=== PATIENT | male | born 1990 | race Caucasian/White ===

== ENCOUNTER 2020-11-27 23:30 | Inpatient (IN) | payer BC ==
[~2020-11-27] VITALS: Ht 182.9 cm; Wt 111.4 kg
[2020-11-28] MEDS ORDERED: diltiazem 5mg/ml 5ml inj. IV ONE (00:25)
[2020-11-28] MEDS ORDERED: diltiazem 30mg tablet PO ONE (00:45)
[2020-11-28 00:59] LABS: ALANINE AMINOTRANSFERASE 63 U/L (12-78); ALBUMIN 3.9 G/DL (3.4-5.0); ALBUMIN/GLOBULIN RATIO 0.9 (1.1-1.5); ALKALINE PHOSPHATASE 74 IU/L (46-116); ANION GAP 9 (8-16); ASPARTATE AMINO TRANSFERASE 30 U/L (10-37); BILIRUBIN,TOTAL 0.4 MG/DL (0.1-1.0); BLOOD UREA NITROGEN 17 MG/DL (7-18); BUN/CREATININE RATIO 14.8 (5.4-32.0); CALCIUM 9.4 MG/DL (8.5-10.1); CHLORIDE 104 MMOL/L (99-107); CREATININE 1.15 MG/DL (0.60-1.10); GLUCOSE 135 MG/DL (70-104); POTASSIUM 3.5 MMOL/L (3.5-5.1); SODIUM 142 MMOL/L (135-145); TOTAL CARBON DIOXIDE 29.1 MMOL/L (24-32); TOTAL PROTEIN 8.4 G/DL (6.4-8.2); eGFR 74 ML/MIN
[2020-11-28 01:19] LABS: BASOPHILS # (AUTO) 0.1 X10'3 (0-0.2); BASOPHILS % (AUTO) 0.6 % (0-1); EOSINOPHILS # (AUTO) 0.1 X10'3 (0-0.9); HEMATOCRIT 47.7 % (42.0-52.0); HEMOGLOBIN 16.9 g/dl (14.0-17.9); LYMPHOCYTES # (AUTO) 3.6 X10'3 (1.1-4.8); MEAN CORPUSCULAR HEMOGLOBIN 29.2 PG (27.0-31.0); MEAN CORPUSCULAR HGB CONC 35.3 g/dL (33.0-36.5); MEAN CORPUSCULAR VOLUME 82.8 FL (78-98); MEAN PLATELET VOLUME 8.9 FL (7.4-10.4); MONOCYTES # (AUTO) 0.7 X10'3 (0-0.9); MONOCYTES % (AUTO) 8.9 % (2-12); NEUTROPHILS # (AUTO) 3.9 X10'3 (1.8-7.7); NEUTROPHILS % (AUTO) 46.5 % (42-75); PLATELET COUNT 264 X10'3 (140-440); RED BLOOD COUNT 5.77 X10'6 (4.70-6.10); RED CELL DISTRIBUTION WIDTH 12.9 % (11.5-14.5); WHITE BLOOD COUNT 8.3 X10'3 (4.5-11.0)
[2020-11-28 01:27] LABS: MAGNESIUM 2.5 MG/DL (1.5-2.4)
--- NOTE | 2020-11-28 02:10 | NUR ---
AT BEDSIDE - PTS HEARTRATE REMAINS VARIABLE FROM HIGH 90'S TO 130'S A-FIB
[2020-11-28] MEDS ORDERED: morphine 2 MG/ML inj. syringe IV PRN ×2 (02:30)
[2020-11-28] MEDS ORDERED: diphenhydrAMINE 50 mg/ml inj IV PRN (02:30)
[2020-11-28] MEDS ORDERED: acetaminophen 325mg tablet PO PRN ×2 (02:30)
[2020-11-28] MEDS ORDERED: diphenhydrAMINE 25mg capsule PO PRN (02:30)
[2020-11-28] MEDS ORDERED: HYDROcodone/acetaminophen 10/325mg tab PO PRN (02:30)
[2020-11-28] MEDS ORDERED: mag hydrox/Alum hydrox/simeth 30ml oral suspension PO PRN (02:30)
[2020-11-28] MEDS ORDERED: ondansetron 4mg rapidly disintigrating tab PO PRN (02:30)
[2020-11-28] MEDS ORDERED: bisacodyl 10mg suppository rectal RC PRN (02:30)
[2020-11-28] MEDS ORDERED: HYDROcodone/acetaminophen 5mg/325mg tablet PO PRN (02:30)
[2020-11-28] MEDS ORDERED: magnesium hydroxide 30ml (MOM) UD suspension PO PRN (02:30)
[2020-11-28] MEDS ORDERED: ondansetron/PF 4mg/2ml inj IV PRN (02:30)
[2020-11-28] MEDS ORDERED: acetaminophen 650mg rectal suppository RC PRN (02:30)
[2020-11-28] MEDS ORDERED: hydrALAZINE 20mg/ml inj. IV PRN (02:40)
[2020-11-28 03:06] LABS: HEMOGLOBIN A1C 5.6 % (4.5-6.2)
[2020-11-28 03:07] LABS: CREATINE KINASE 356 U/L (39-308); LIPASE 143 U/L (73-393); PHOSPHORUS 4.9 MG/DL (2.3-4.5); TROPONIN I < 0.04 NG/ML (0.0-0.05)
[2020-11-28 03:08] LABS: URINE AMPHETAMINE SCREEN NEGATIVE (Neg); URINE BARBITUATE SCREEN NEGATIVE (Neg); URINE BENZODIAZEPINES SCREEN NEGATIVE (Neg); URINE CANNABINOID SCREEN NEGATIVE (Neg); URINE COCAINE SCREEN NEGATIVE (Neg); URINE METHADONE SCREEN NEGATIVE (Neg); URINE OPIATE SCREEN NEGATIVE (Neg); URINE PHENCYCLIDINE SCREEN NEGATIVE (Neg)
[2020-11-28 03:17] LABS: CLARITY,URINE CLEAR (Clear); COLOR,URINE STRAW (Yellow); GLUCOSE, URINE NEGATIVE (Neg); KETONES,URINE NEGATIVE (Neg); LEUKOCYTE ESTERASE ,URINE NEGATIVE (Neg); NITRITES, URINE NEGATIVE (Neg); OCCULT BLOOD,URINE NEGATIVE (Neg); PH,URINE 6.5 (4.8-8.0); PROTEIN,URINE NEGATIVE (Neg); UA COLLECTION TYPE URINAL; UROBILINOGEN,URINE 0.2 E.U/dL (0.2-1.0)
[2020-11-28] MEDS: dextrose 5%-1/2 normal saline 1,000 ML IV SCH ×3 (04:10→22:30)
[2020-11-28] MEDS: diltiazem-NS 100mg/100ml 100 ML IV SCH ×2 (04:10→22:40)
--- NOTE | 2020-11-28 04:24 | NUR ---
pt resting on gurney - cardizem drip has been started. remains at bedside
--- NOTE | 2020-11-28 05:09 | NUR ---
verbal order from MD [place] to increase cardizem drip to 10mg/hr
--- NOTE | 2020-11-28 06:47 | NUR ---
Assisted pt to ambulate to the BR
[2020-11-28] MEDS: pantoprazole 40mg Tablet.DR PO SCH (07:21)
[2020-11-28] MEDS: metoprolol tartrate 25mg tablet PO SCH ×2 (07:21→19:15)
[2020-11-28] MEDS: LORazepam 1 MG tablet PO SCH ×2 (07:21→17:01)
[2020-11-28] MEDS: enoxaparin 30mg/0.3ml syringe SUBCUT SCH ×2 (07:22→19:38)
[2020-11-28] MEDS: enoxaparin 80mg/0.8ml syringe SUBCUT SCH ×2 (07:22→19:37)
[2020-11-28] MEDS: docusate sod 100mg capsule PO SCH ×2 (07:23→19:38)
[2020-11-28] MEDS ORDERED: magnesium 4gm in 100ml NS 100 ML IV PRN (10:25)
[2020-11-28] MEDS ORDERED: potassium Cl 20 mEq SR tablet PO PRN ×2 (10:25)
[2020-11-28] MEDS ORDERED: magnesium Cl slow-release 64mg tablet PO PRN (10:25)
[2020-11-28] MEDS ORDERED: potassium Cl 40MEQ/1/2NS 520ml 520 ML IV PRN (10:25)
[2020-11-28] MEDS ORDERED: iohexol 350MG/ML 100ml bottle IV ONE (11:28)
[2020-11-28] MEDS ORDERED: iohexol 300mg/ml 100ml inj. ONE (11:28)
[2020-11-28] MEDS ORDERED: NO HOME MEDS (11:56)
[2020-11-28 12:48] LABS: PARTIAL THROMBOPLASTIN TIME 31 SECONDS (22-32)
[2020-11-28 12:52] LABS: D-DIMER < 0.19 MG/L FEU (0-0.50)
--- NOTE | 2020-11-28 15:01 | NUR ---
Pt placed on hospital bed to increase comfort level
[2020-11-28] MEDS: K and/or MAG REPLACEMENT MC SCH (19:14)
[2020-11-28] MEDS ORDERED: temazepam 15mg capsule PO PRN (21:00)
--- NOTE | 2020-11-28 23:48 | NUR ---
REPORT CALLED. PT TO FLOOR.
--- NOTE | 2020-11-29 00:30 | NUR ---
Admitted to room oriented to surroundings mrsa swab sent vss
[2020-11-29 01:00] VITALS: BP 121/86
[2020-11-29] MEDS: LORazepam 1 MG tablet PO SCH ×2 (01:30→10:16)
[2020-11-29 07:00] VITALS: BP 177/72
--- NOTE | 2020-11-29 07:11 | NUR ---
Patient in room PCU [id number]. I have received report from Carisa NELSON and had the opportunity to ask questions and assume patient care.
[2020-11-29 07:12] LABS: BASOPHILS % (AUTO) 0.5 % (0-1); EOSINOPHILS # (AUTO) 0.1 X10'3 (0-0.9); EOSINOPHILS % (AUTO) 0.9 % (0-6); HEMATOCRIT 44.7 % (42.0-52.0); HEMOGLOBIN 15.5 g/dl (14.0-17.9); LYMPHOCYTES # (AUTO) 2.3 X10'3 (1.1-4.8); LYMPHOCYTES % (AUTO) 30.9 % (21-51); MEAN CORPUSCULAR HEMOGLOBIN 28.8 PG (27.0-31.0); MEAN CORPUSCULAR HGB CONC 34.7 g/dL (33.0-36.5); MEAN CORPUSCULAR VOLUME 82.9 FL (78-98); MEAN PLATELET VOLUME 8.6 FL (7.4-10.4); MONOCYTES # (AUTO) 0.5 X10'3 (0-0.9); MONOCYTES % (AUTO) 7.4 % (2-12); NEUTROPHILS # (AUTO) 4.5 X10'3 (1.8-7.7); NEUTROPHILS % (AUTO) 60.3 % (42-75); PLATELET COUNT 243 X10'3 (140-440); RED CELL DISTRIBUTION WIDTH 13.1 % (11.5-14.5); WHITE BLOOD COUNT 7.4 X10'3 (4.5-11.0)
[2020-11-29 07:34] LABS: ALANINE AMINOTRANSFERASE 49 U/L (12-78); ALBUMIN 3.7 G/DL (3.4-5.0); ALBUMIN/GLOBULIN RATIO 1.1 (1.1-1.5); ALKALINE PHOSPHATASE 47 IU/L (46-116); ANION GAP 13 (8-16); ASPARTATE AMINO TRANSFERASE 18 U/L (10-37); BILIRUBIN,TOTAL 0.5 MG/DL (0.1-1.0); BLOOD UREA NITROGEN 15 MG/DL (7-18); BUN/CREATININE RATIO 13.5 (5.4-32.0); CALCIUM 8.6 MG/DL (8.5-10.1); CHLORIDE 105 MMOL/L (99-107); CHOL/HDL RATIO 7.5 (0.00-4.99); CHOLESTEROL 194 MG/DL (0-200); CREATININE 1.11 MG/DL (0.60-1.10); GLUCOSE 96 MG/DL (70-104); HDL CHOLESTEROL 26 MG/DL (35-60); LDL CHOLESTEROL 136 MG/DL (50-100); MAGNESIUM 2.3 MG/DL (1.5-2.4); PHOSPHORUS 3.9 MG/DL (2.3-4.5); SODIUM 143 MMOL/L (135-145); TOTAL CARBON DIOXIDE 24.8 MMOL/L (24-32); TOTAL PROTEIN 7.2 G/DL (6.4-8.2); TRIGLYCERIDES 246 MG/DL (20-135); eGFR 77 ML/MIN
[2020-11-29] MEDS: K and/or MAG REPLACEMENT MC SCH (08:00)
[2020-11-29] MEDS: docusate sod 100mg capsule PO SCH (08:00)
--- NOTE | 2020-11-29 08:04 | NUR ---
Echo paged so patient can get echo done and go home
[2020-11-29] MEDS: dextrose 5%-1/2 normal saline 1,000 ML IV SCH (08:30)
[2020-11-29] MEDS: enoxaparin 80mg/0.8ml syringe SUBCUT SCH (10:15)
[2020-11-29] MEDS: enoxaparin 30mg/0.3ml syringe SUBCUT SCH (10:15)
[2020-11-29] MEDS: pantoprazole 40mg Tablet.DR PO SCH (10:16)
[2020-11-29] MEDS ORDERED: metoprolol tartrate 25mg tablet PO SCH (10:30)
[2020-11-29 11:00] VITALS: BP 128/86
[2020-11-29] MEDS ORDERED: LOP25T PO (12:40)
[2020-11-29] MEDS ORDERED: APIX5TAB3 PO (12:40)
[2020-11-29] MEDS ORDERED: ATOR20TA PO (12:40)
[2020-11-29] MEDS ORDERED: DILT-88 PO (12:40)
--- NOTE | 2020-11-29 15:32 | NUR ---
PT was DC to home with family. PIV was removed with cannula intact. RX were escripted to [facility]. DC instructions and warning s/s were reviewed with patient and family with all questions answered. All verbalized understanding. Patient was alert, oriented and appropriate at time of DC.
--- NOTE | 2020-11-29 15:38 | NUR ---
Orientee documentation: I have reviewed and agree with all interventions, assessments performed and documented by Melodie NELSON . Orientee Medication Administration: For this medication-pass time frame, all medication were reviewed, dispensed, administered and documented per hospital policy by Melodie NELSON.
== END 2020-11-29 15:05 | disposition home or self-care (01) | DRG 310 ==
LOC: ER 23:30 → ED HOLD 11-28 02:35 → PCU 3S 11-29 00:25
PROVIDERS: ADMIT Family Medicine; ATTEND Family Medicine
PROC: B32T1ZZ Computerized Tomography (CT Scan) of Left Pulmonary Artery using Low Osmolar Contrast (ICD-10-PCS; principal; 2020-11-28)
PROC: B3201ZZ Computerized Tomography (CT Scan) of Thoracic Aorta using Low Osmolar Contrast (ICD-10-PCS; 2020-11-28)
PROC: B32S1ZZ Computerized Tomography (CT Scan) of Right Pulmonary Artery using Low Osmolar Contrast (ICD-10-PCS; 2020-11-28)
DX: I48.91 Unspecified atrial fibrillation (principal); E78.5 Hyperlipidemia, unspecified; I47.2 Ventricular tachycardia; F17.200 Nicotine dependence, unspecified, uncomplicated; Z20.822 Contact with and (suspected) exposure to COVID-19; F41.9 Anxiety disorder, unspecified; I10 Essential (primary) hypertension; Z88.0 Allergy status to penicillin; Z71.6 Tobacco abuse counseling
CPT/HCPCS: 36415; 71045; 71275; 80053; 80061; 80305; 81003; 82550; 83036; 83690; 83735; 83880; 84100; 84443; 84484; 85025; 85379; 85610; 85730; 87081; 87635; 93005; 93306; 99285; G0378; J1650; J3490; Q9967